=== PATIENT | male | born 1965 | race Hispanic/Latino ===

== ENCOUNTER 2020-01-14 11:06 | Emergency (ER) | payer OTHER ==
[2020-01-14] MEDS ORDERED: ACETAMINOPHEN-CODEINE 300/30MG TAB ONE (11:55)
== END 2020-01-14 13:38 | disposition home or self-care (01) ==
LOC: EDH 11:06
DX: S19.80XA Other specified injuries of unspecified part of neck, initial encounter (principal); S09.90XA Unspecified injury of head, initial encounter; Z72.0 Tobacco use; V49.49XA Driver injured in collision with other motor vehicles in traffic accident, initial encounter; Y93.89 Activity, other specified; Y92.488 Other paved roadways as the place of occurrence of the external cause; Y99.8 Other external cause status
CPT/HCPCS: 70450; 72125